=== PATIENT | female | born 1970 | race Caucasian/White ===

== ENCOUNTER 2021-03-07 12:35 | Observation (INO) | payer OTHER ==
[2021-03-07] MEDS ORDERED: SODIUM CHLORIDE 0.9% 500 ML 500 ML IV STA (13:06)
[2021-03-07 13:21] LABS: Glucose,Whole Blood 96 mg/dL (75-99)
[2021-03-07] MEDS ORDERED: LORazepam 2 MG/ML INJ IV STA (13:28)
[2021-03-07 13:30] LABS: Basophils % (A) 0 %; Eosinophils # (A) 0.2 k/uL (0-0.7); Eosinophils % (A) 3 %; HCT 42.4 % (34.0-46.0); HGB 14.8 gm/dL (11.4-16.0); Lymphocytes % (A) 27 %; MCH 30.8 pg (25.0-35.0); MCHC 34.8 g/dL (31.0-37.0); MCV 88.5 fL (80.0-100.0); Mean Platelet Volume 6.6; Monocytes # (A) 0.4 k/uL (0-1.0); Monocytes % (A) 5 %; Neutrophils # (A) 4.7 k/uL (1.3-7.7); Neutrophils % (A) 63 %; Platelet Count 177 k/uL (150-450); RDW 11.9 % (11.5-15.5); WBC 7.4 k/uL (3.8-10.6)
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
[2021-03-07 13:42] LABS: ALT 91 U/L (4-34); AST 73 U/L (14-36); African American GFR (CKD) >90 (>60 ml/min/1.73 sqM); Albumin 4.4 g/dL (3.5-5.0); Alkaline Phosphatase 84 U/L (38-126); Anion Gap 6 mmol/L; Blood Urea Nitrogen 14 mg/dL (7-17); Calcium 9.7 mg/dL (8.4-10.2); Carbon Dioxide 29 mmol/L (22-30); Chloride 105 mmol/L (98-107); Glucose 96 mg/dL (74-99); INR 0.9 (<1.2); Non-African American GFR(CKD) >90 (>60 ml/min/1.73 sqM); Partial Thromboplastin Time 23.8 sec (22.0-30.0); Potassium 4.1 mmol/L (3.5-5.1); Prothrombin Time 10.2 sec (9.0-12.0); Sodium 140 mmol/L (137-145); Total Bilirubin 0.4 mg/dL (0.2-1.3); Total Protein 7.1 g/dL (6.3-8.2)
--- NOTE | 2021-03-07 14:57 | CT ---
EXAMINATION TYPE: CT brain wo con DATE OF EXAM: 03/07/2021 COMPARISON: None HISTORY: 50-year-old female with neurologic deficit, acute, stroke suspected. Dizziness, headache, hy pertension. TECHNIQUE: Examination was done in axial plane without intravenous contrast. Coronal and sagittal r econstructions performed. CT DLP: 1072.4 mGycm Automated exposure control for dose reduction was used. FINDINGS: There is a prominent skull base artifact affecting the posterior cranial fossa. Allowing for this lagos itation, there is no evidence of acute intracranial hemorrhage, acute ischemic changes, mass, mass-e ffect, or extra-axial fluid collection. There is no effacement of cerebral sulci or basal subarachno id cisterns. There is no hydrocephalus. There is no midline shift. Azul-white matter distinction i s preserved. Minimal patchy white matter hypodensity particularly left deep white matter. Mild mucosal thickening ethmoid air cells. Mastoid air cells are well-pneumatized. Orbits and globes are intact. IMPRESSION: Minimal burden chronic small vessel ischemic disease. No acute intracranial abnormality seen. If symp toms persist, consider MRI.
[2021-03-07] MEDS ORDERED: ASPIRIN 325 MG TAB PO STA (15:09)
--- NOTE | 2021-03-07 15:59 | XR ---
EXAMINATION TYPE: XR chest 2V DATE OF EXAM: 03/07/2021 COMPARISON: NONE HISTORY: Left-sided facial numbness TECHNIQUE: Frontal and lateral views of the chest are obtained. FINDINGS: Heart size is within normal limits. Overlying leads. No pleural effusion, focal consolidat ion or pneumothorax. Osseous structures are unremarkable. IMPRESSION: 1. No acute pulmonary disease.
[2021-03-07 16:53] LABS: Amphetamine Screen,Urine Not Detected (NotDetected); Barbiturate Screen,Urine Not Detected (NotDetected); Benzodiazepines Screen,Urine Not Detected (NotDetected); Cocaine Screen,Urine Not Detected (NotDetected); Methadone Screen, Urine Not Detected (NotDetected); Opiate Screen,Urine Not Detected (NotDetected); Oxycodone Screen, Urine Not Detected (NotDetected); Phencyclidine Screen,Urine Not Detected (NotDetected); Tricyclic Antidepressant,Urine Not Detected (NotDetected); Urn Cannabinoid Scrn Not Detected (NotDetected)
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
[2021-03-08] MEDS: ASPIRIN 325 MG TAB PO SCH (08:54)
[2021-03-08] MEDS: CITALOPRAM HYDROBROMIDE 20 MG TAB PO SCH (08:54)
[2021-03-08 11:14] LABS: Chol/HDL Ratio 4.64; LDL Cholesterol,Calculated 155.2 mg/dL (0.0-131.0); VLDL Calculation 15.8 mg/dL (5.00-40.00)
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
--- NOTE | 2021-03-08 15:41 | US ---
EXAMINATION TYPE: US carotid duplex BILAT DATE OF EXAM: 03/08/2021 COMPARISON: NONE CLINICAL HISTORY: TIA. TIA, HTN EXAM MEASUREMENTS: RIGHT: Peak Systolic Velocity (PSV) cm/sec ----- Right CCA: 129 ----- Right ICA: 118 ----- Right ECA: 111 ICA/CCA ratio: 0.9 RIGHT: End Diastole cm/sec ----- Right CCA: 21.2 ----- Right ICA: 8.0 ----- Right ECA: 18.3 LEFT: Peak Systolic Velocity (PSV) cm/sec ----- Left CCA: 122 ----- Left ICA: 128 ----- Left ECA: 118 ICA/CCA ratio: 1.0 LEFT: End Diastole cm/sec ----- Left CCA: 26.0 ----- Left ICA: 30.8 ----- Left ECA: 15.6 VERTEBRALS (direction of flow): Right Vertebral: Unable to visualize Left Vertebral: Antegrade Rhythm: Normal No significant stenosis of the internal carotid arteries. IMPRESSION: 1. The right vertebral artery is not visualized. 2. No evidence of hemodynamically significant stenosis of the bilateral internal carotid arteries. No significant atherosclerotic plaque is seen. Criteria for Assigning % of Stenosis / Diameter reduction (Estimation based on the indirect measurements of the internal carotid artery velocities (ICA PSV). 1. Normal (no stenosis)=ICA PSV < 125 cm/s: ratio < 2.0: ICA EDV<40 cm/s. 2. Less than 50% stenosis=ICA PSV < 125 cm/s: ratio < 2.0: ICA EDV<40 cm/s. 3. 50 to 69% stenosis=ICA PSV of 125 to 230 cm/s: ration 2.0 ? 4.0: ICA EDV 40-100 cm/s. 4. Greater than 70% stenosis to near occlusion= ICA PSV > 230 cm/s: ratio > 4.0: ICA EDV > 100 cm/s. 5. Near occlusion= ICA PSV velocities may be low or undetectable: variable ratio and ICA EDV. 6. Total occlusion=unable to detect flow.
[2021-03-08] MEDS ORDERED: CYANOCOBALAMIN 1,000 MCG/ML 1 ML VIAL IM ONE (16:02)
[2021-03-08 16:57] LABS: Hemoglobin A1C 4.8 % (4.0-6.0)
--- NOTE | 2021-03-08 17:45 | ECHOF ---
Referral Reason:TIA MEASUREMENTS -------- HEIGHT: 170.2 cm WEIGHT: 95.3 kg BP: 110/68 RVIDd: 2.7 cm (< 3.3) IVSd: 1.4 cm (0.6 - 1.1) LVIDd: 4.9 cm (3.9 - 5.3) LVPWd: 1.2 cm (0.6 - 1.1) IVSs: 1.5 cm LVIDs: 3.1 cm LVPWs: 1.8 cm LAESV Index (A-L): 25.61 ml/m Ao Diam: 2.9 cm (2.0 - 3.7) AV Cusp: 2.0 cm (1.5 - 2.6) LA Diam: 3.5 cm (2.7 - 3.8) MV EXCURSION: 18.450 mm (> 18.000) MV EF SLOPE: 108 mm/s (70 - 150) EPSS: 0.6 cm MV E Jc: 0.61 m/s MV DecT: 151 ms MV A Jc: 0.54 m/s MV E/A Ratio: 1.13 FINDINGS -------- Sinus rhythm. This was a technically adequate study. The left ventricular size is normal. There is mild concentric left ventricular hypertrophy. Overa ll left ventricular systolic function is normal with, an EF between 55 - 60 %. The diastolic fillin g pattern is normal for the age of the patient 5.80. The right ventricle is normal in size. Normal LA size by volume 22+/-6 ml/m2. The right atrial size is normal. Contrast study was performed with 2 iv injections of 8 ccs of agitated normal saline, at rest, and po st-Valsalva. Interatrial and interventricular septum intact. Negative bubble study for a possible PFO There is no evidence of aortic regurgitation. There is no evidence of aortic stenosis. Mild mitral regurgitation is present. Mild tricuspid regurgitation present. There is no evidence of pulmonary hypertension. There is no pulmonic regurgitation present. The aortic root size is normal. IVC Not well visulized. There is no pericardial effusion. CONCLUSIONS -------- 1. The left ventricular size is normal. 2. There is mild concentric left ventricular hypertrophy. 3. Overall left ventricular systolic function is normal with, an EF between 55 - 60 %. 4. The diastolic filling pattern is normal for the age of the patient 5.80 5. Mild mitral regurgitation is present. 6. Mild tricuspid regurgitation present. [employer]ER[employer]: Spring Moody RDCS
[2021-03-08] MEDS ORDERED: ALPRAZolam 0.25 MG TAB PO PRN (20:38)
--- NOTE | 2021-03-08 22:25 | MR ---
EXAMINATION TYPE: MR angio head wo con DATE OF EXAM: 03/08/2021 COMPARISON: None HISTORY: TIA vs CVA. MR angiographic images were obtained of the intracerebral arterial circulation. There is arterial flow in the anterior middle and posterior cerebral arteries. There is arterial flow in the vertebrobasilar artery system. I see no evidence of intracranial aneurysm or neovascularity. There are diminutive posterior communicating arteries. There is no mass effect. I see no evidence of intracranial arterial stenosis. IMPRESSION: Negative MR angiogram of the brain. Normal exam.
--- NOTE | 2021-03-09 04:20 | MR ---
EXAMINATION TYPE: MR brain wo con DATE OF EXAM: 03/08/2021 COMPARISON: None HISTORY: TIA vs CVA. Multiplanar multiecho imaging of the brain with no contrast. Ventricles have normal size. There is no mass effect nor midline shift. There is no sign of intracran ial hemorrhage. The diffusion images show no sign of an acute infarct. On the T2 and FLAIR images th ere are scattered white matter high signal foci around the ventricles at the goetz-white matter juncti on. These measure up to 6 mm and the total number is less than 20. Most of these are 3 mm or less. Th e brainstem is intact. Corpus callosum shows some posterior thinning. The sella turcica appears virgilio l. IMPRESSION: There are a few scattered white matter small high signal foci that could relate to microvascular isch emia. Demyelinating disease not excluded. No evidence of a cortical infarct.
[2021-03-09 07:48] VITALS: BP 118/77; PULSE 68; RESP 16; TEMP 97.9
[2021-03-09] MEDS: CITALOPRAM HYDROBROMIDE 20 MG TAB PO SCH (08:48)
[2021-03-09] MEDS: ASPIRIN 325 MG TAB PO SCH (08:48)
== END 2021-03-09 12:20 | disposition home or self-care (01) ==
LOC: EC 12:35 → 6NMEDSUR 15:48
PROVIDERS: ADMIT Internal Medicine; ATTEND Internal Medicine
DX: G45.9 Transient cerebral ischemic attack, unspecified (principal); I10 Essential (primary) hypertension; F41.9 Anxiety disorder, unspecified; F31.9 Bipolar disorder, unspecified; F17.210 Nicotine dependence, cigarettes, uncomplicated; E78.5 Hyperlipidemia, unspecified; F90.9 Attention-deficit hyperactivity disorder, unspecified type; M19.90 Unspecified osteoarthritis, unspecified site; Z79.899 Other long term (current) drug therapy; Z91.013 Allergy to seafood; Z87.820 Personal history of traumatic brain injury; Z86.74 Personal history of sudden cardiac arrest; Z86.14 Personal history of Methicillin resistant Staphylococcus aureus infection
CPT/HCPCS: 96372; 96374; 99285; 36415; 93005; 93306; 97161; 97165; 82747; 80061; 80053; 84443; 82607; 84484; 85025; 85610; 85730; 80306; 83036; 71046; 93880; 70450; 70544; 70551; G0378 ×3; J2060; J3420